=== PATIENT | female | born 1940 | race Caucasian/White ===

== ENCOUNTER → 2023-12-30 09:12 | Outpatient (REF) | payer MEDICARE, OTHER, SELFPAY | LOC: RAD 09:12 | PROVIDERS: ATTENDING PHYSICIAN Internal Medicine | DX: R10.9 Unspecified abdominal pain (principal) | CPT/HCPCS: 76700 ==

== ENCOUNTER → 2024-03-05 07:05 | Outpatient (REF) | payer MEDICARE, OTHER, SELFPAY ==
[2024-03-05 07:39] LABS: % Basophils 0.9 % (0-2); % Eosinophils 1.7 % (0-6); % Immature Granulocytes 0.2 % (0-0.5); % Lymphocytes 29.9 % (20.5-51.1); % Neutrophils 61.3 % (42.2-75.2); Absolute Basophils 0.1 10^3/uL (0-0.2); Absolute Eosinophils 0.1 10^3/uL (0-0.7); Absolute Lymphocytes 1.6 10^3/uL (1.2-3.4); Absolute Monocytes 0.3 10^3/uL (0.1-0.6); Absolute Neutrophils 3.2 10^3/uL (1.4-6.5); Hematocrit 43.2 % (37.0-47.0); Hemoglobin 14.4 g/dL (12.0-16.0); Mean Corp Hgb Conc. 33.3 g/dL (33.0-37.0); Mean Corpuscular Hgb 29.5 pg (27.0-31.0); Mean Corpuscular Volume 88.5 fL (81.0-99.0); Nucleated Red Blood Cells % 0 %; Platelet Count 260 10^3/uL (130-400); Red Blood Cell Count 4.88 10^6/uL (4.20-5.40); Red Cell Dist. Width 13.8 % (11.5-14.5); White Blood Cell Count 5.3 10^3/uL (4.8-10.8)
[2024-03-05 08:14] LABS: ALT (SGPT) 20 U/L (0-35); AST (SGOT) 32 U/L (14-36); Albumin 4.4 g/dl (3.5-5.0); Alkaline Phosphatase 92 U/L (38-126); Blood Urea Nitrogen 13 mg/dl (7-17); Calcium 10.1 mg/dl (8.4-10.2); Carbon Dioxide 27 mmol/L (22-30); Chloride 107 mmol/L (98-107); Glucose 91 mg/dl (70-99); HDL Cholesterol 100 mg/dl; LDL Cholesterol, Calculated 47 mg/dl; Potassium 4.4 mmol/L (3.5-5.1); Sodium 139 mmol/L (135-145); Total Bilirubin 0.7 mg/dl (0.2-1.3); Total Cholesterol 166 mg/dl (50-199); Total Protein 7.1 g/dl (6.3-8.2); Triglyceride 98 mg/dl (10-149); Very Low Density Lipoprotein 19 mg/dl (0-30); eGFR > 60.00
[2024-03-05 08:44] LABS: TSH Reflex To Free T4 3.03 uIU/ml (0.47-4.68)
== END ==
LOC: REG 07:05
PROVIDERS: ATTENDING PHYSICIAN Internal Medicine
DX: I10 Essential (primary) hypertension (principal); E78.2 Mixed hyperlipidemia
CPT/HCPCS: 36415; 80053; 80061; 84443; 85025

== ENCOUNTER → 2024-07-27 07:29 | Outpatient (REF) | payer MEDICARE, OTHER, SELFPAY | LOC: WDC 07:29 | PROVIDERS: ATTENDING PHYSICIAN Internal Medicine | DX: Z12.31 Encounter for screening mammogram for malignant neoplasm of breast (principal) | CPT/HCPCS: 77063; 77067 ==

== ENCOUNTER → 2024-09-12 07:43 | Outpatient (REF) | payer MEDICARE, OTHER, SELFPAY ==
[2024-09-12 10:37] LABS: ALT (SGPT) 20 U/L (0-35); AST (SGOT) 31 U/L (14-36); Albumin 4.5 g/dl (3.5-5.0); Alkaline Phosphatase 88 U/L (38-126); Blood Urea Nitrogen 17 mg/dl (7-17); Calcium 9.9 mg/dl (8.4-10.2); Carbon Dioxide 28 mmol/L (22-30); Chloride 104 mmol/L (98-107); Glucose 88 mg/dl (70-99); HDL Cholesterol 98 mg/dl; LDL Cholesterol, Calculated 66 mg/dl; Potassium 4.8 mmol/L (3.5-5.1); Sodium 142 mmol/L (135-145); Total Bilirubin 0.5 mg/dl (0.2-1.3); Total Cholesterol 178 mg/dl (50-199); Total Protein 7.1 g/dl (6.3-8.2); Triglyceride 74 mg/dl (10-149); Very Low Density Lipoprotein 14 mg/dl (0-30); eGFR > 60.00
== END ==
LOC: REG 07:43
PROVIDERS: ATTENDING PHYSICIAN Internal Medicine
DX: I10 Essential (primary) hypertension (principal); E78.2 Mixed hyperlipidemia
CPT/HCPCS: 36415; 80053; 80061

== ENCOUNTER → 2024-10-25 08:01 | Outpatient (REF) | payer MEDICARE, OTHER, SELFPAY | LOC: RCS 08:01 | PROVIDERS: ATTENDING PHYSICIAN Nuclear Medicine Nuclear Cardiology; FAMILY PHYSICIAN Internal Medicine | DX: I34.0 Nonrheumatic mitral (valve) insufficiency (principal) | CPT/HCPCS: 93306 ==

== ENCOUNTER → 2024-12-25 10:47 | Outpatient (REF) | payer MEDICARE, OTHER, SELFPAY | LOC: RAD 10:47 | PROVIDERS: ATTENDING PHYSICIAN Nurse Practitioner Family; FAMILY PHYSICIAN Internal Medicine Gastroenterology | DX: R07.81 Pleurodynia (principal) | CPT/HCPCS: 71101 ==

== ENCOUNTER → 2024-12-26 09:17 | Outpatient (REF) | payer MEDICARE, OTHER, SELFPAY | LOC: RAD 09:17 | PROVIDERS: ATTENDING PHYSICIAN Nurse Practitioner Family | DX: R07.81 Pleurodynia (principal) | CPT/HCPCS: 71100 ==

== ENCOUNTER → 2025-03-08 07:42 | Outpatient (REF) | payer MEDICARE, OTHER, SELFPAY ==
[2025-03-08 08:22] LABS: % Basophils 0.7 % (0-2); % Eosinophils 1.3 % (0-6); % Immature Granulocytes 0.3 % (0-0.5); % Monocytes 5.9 % (1.7-9.3); % Neutrophils 65.8 % (42.2-75.2); Absolute Eosinophils 0.1 10^3/uL (0-0.7); Absolute Lymphocytes 1.6 10^3/uL (1.2-3.4); Absolute Monocytes 0.4 10^3/uL (0.1-0.6); Absolute Neutrophils 3.9 10^3/uL (1.4-6.5); Hematocrit 41.2 % (37.0-47.0); Hemoglobin 13.7 g/dL (12.0-16.0); Mean Corp Hgb Conc. 33.3 g/dL (33.0-37.0); Mean Corpuscular Hgb 29.1 pg (27.0-31.0); Mean Corpuscular Volume 87.5 fL (81.0-99.0); Mean Platelet Volume 10.6 fL (7.4-10.4); Nucleated Red Blood Cells % 0 %; Platelet Count 275 10^3/uL (130-400); Red Blood Cell Count 4.71 10^6/uL (4.20-5.40); Red Cell Dist. Width 13.8 % (11.5-14.5)
[2025-03-08 09:06] LABS: ALT (SGPT) 20 U/L (0-35); AST (SGOT) 27 U/L (14-36); Albumin 4.4 g/dl (3.5-5.0); Alkaline Phosphatase 96 U/L (38-126); Blood Urea Nitrogen 17 mg/dl (7-17); Calcium 9.6 mg/dl (8.4-10.2); Carbon Dioxide 26 mmol/L (22-30); Chloride 107 mmol/L (98-107); Glucose 99 mg/dl (70-99); HDL Cholesterol 92 mg/dl; LDL Cholesterol, Calculated 67 mg/dl; Potassium 4.5 mmol/L (3.5-5.1); Sodium 141 mmol/L (135-145); Total Bilirubin 0.6 mg/dl (0.2-1.3); Total Cholesterol 176 mg/dl (50-199); Total Protein 6.9 g/dl (6.3-8.2); Triglyceride 85 mg/dl (10-149); Very Low Density Lipoprotein 17 mg/dl (0-30); eGFR > 60.00
[2025-03-08 09:25] LABS: TSH Reflex To Free T4 2.97 uIU/ml (0.47-4.68)
== END ==
LOC: REG 07:42
PROVIDERS: ATTENDING PHYSICIAN Internal Medicine
DX: I10 Essential (primary) hypertension (principal); K21.9 Gastro-esophageal reflux disease without esophagitis; E78.2 Mixed hyperlipidemia
CPT/HCPCS: 36415; 80053; 80061; 84443; 85025

== ENCOUNTER → 2025-07-30 10:01 | Outpatient (REF) | payer MEDICARE, OTHER, SELFPAY | LOC: WDC 10:01 | PROVIDERS: ATTENDING PHYSICIAN Internal Medicine | DX: Z12.39 Encounter for other screening for malignant neoplasm of breast (principal); M81.0 Age-related osteoporosis without current pathological fracture; Z12.31 Encounter for screening mammogram for malignant neoplasm of breast | CPT/HCPCS: 77063; 77067; 77080 ==